=== PATIENT | female | born 1995 | race Asian ===

== ENCOUNTER 2016-03-25 18:55 | Emergency (ER) | payer OTHER ==
[2016-03-25 19:23] VITALS: TEMP 99.1; O2SAT 97
[2016-03-25] MEDS ORDERED: ACETAMINOPHEN 325 MG TAB PO ONE (19:59)
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
[2016-03-25] MEDS ORDERED: ACETAMINOPHEN 325 MG TAB ONE (20:01)
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
[2016-03-25 22:23] VITALS: BP 113/72; PULSE 81; RESP 18
== END 2016-03-25 22:18 | disposition home or self-care (01) ==
LOC: EDUNIT#
DX: S09.90XA Unspecified injury of head, initial encounter (principal); S00.83XA Contusion of other part of head, initial encounter; S16.1XXA Strain of muscle, fascia and tendon at neck level, initial encounter; J45.909 Unspecified asthma, uncomplicated; V49.40XA Driver injured in collision with unspecified motor vehicles in traffic accident, initial encounter; Y92.410 Unspecified street and highway as the place of occurrence of the external cause; Y99.8 Other external cause status; Y93.89 Activity, other specified